=== PATIENT | female | born 1945 | race Caucasian/White ===

== ENCOUNTER 2020-01-22 12:39 | Outpatient (CLI) | payer MEDICARE, SELFPAY ==
--- NOTE | 2020-01-22 | XR_ITS ---
WS: [id number] Lumbar spine, 3 views, 01/22/2020 Clinical Data: BACK PAIN Comparison: None. Findings: No compression fractures or subluxation is seen. Degenerative disc narrowing is present at L2-L3, L3- L4 and L5-S1. There is a slight levoscoliosis of the upper lumbar spine. Osteoarthritic spurring of a ll the lumbar vertebral bodies is noted.. The transverse processes and SI joints are normal. There is calcification in the wall of the abdominal aorta but no aneurysm. XR/XR lumbar spine 2-3V* [id number] Impression: 1. Degenerative disc narrowing at multiple levels. 2. 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
== END 2020-01-22 12:40 | disposition home or self-care (01) ==
PROVIDERS: Family Provider Family Medicine; PCP Family Medicine; Visit Provider Family Medicine
DX: M54.9 Dorsalgia, unspecified (principal); M47.816 Spondylosis without myelopathy or radiculopathy, lumbar region
CPT/HCPCS: 72100

== ENCOUNTER 2020-03-08 13:20 | Outpatient (CLI) | payer MEDICARE, SELFPAY ==
--- NOTE | 2020-03-08 13:28 | MM_ITS ---
WS: [id number] SCREENING DIGITAL MAMMOGRAM WITH CAD HISTORY: SCREENING COMPARISON: 09/30/2013 Bilateral CC and MLO views submitted. Computer aided detection analyzed. Breast composition: There are scattered areas of fibroglandular density. Millimeters high density nodule in the RIGHT upper outer quadrant posteriorly. This may be small cyst or lymph node. This was not present on the prior study. Otherwise negative. MM/[place] [id number] IMPRESSION: BI-RADS: 0-Incomplete: Need additional imaging evaluation FOLLOW UP: Need Additional Imaging RIGHT breast: Spot compression views (CC and MLO). True ML. Ultrasound to follo w if abnormality persists.
--- NOTE | 2020-03-08 13:53 | XR_ITS ---
WS: [id number] SCREENING DEXA SCAN [employer] CLINICAL INFORMATION: HYPOTHYROIDISM, POST MENOPAUSAL COMPARISON: None. FINDINGS: The L1-L4 bone mineral density measures 1.178 g/cm2. This corresponds to a T score score of 0.0 and Z score of 1.1. Left femoral neck bone mineral density measures 0.858 g/cm2. This corresponds to a T score of -1.2 an d Z score of 0.1. Right femoral neck bone mineral density measures 0.852 g/cm2. This corresponds to a T score -1.2of an d Z score of 0.1. Mean femoral neck bone mineral density measures 0.855 g/cm2. This corresponds to a T score of -1.2 an d Z score of 0.1. XR/XR DEXA axial skeleton* [id number] IMPRESSION: Osteopenia in the femoral necks. Patient's FRAX calculated 10 year probability for major osteoporotic fracture i s 10.8 % and osteoporotic hip fracture is 2.0%.
== END 2020-03-08 13:21 | disposition home or self-care (01) ==
LOC: RADSHAW 13:22
PROVIDERS: PCP Family Medicine; Visit Provider Family Medicine
DX: Z12.31 Encounter for screening mammogram for malignant neoplasm of breast (principal); Z78.0 Asymptomatic menopausal state; E03.9 Hypothyroidism, unspecified
CPT/HCPCS: 77067; 77080

== ENCOUNTER 2020-04-06 08:26 | Outpatient (CLI) | payer MEDICARE, SELFPAY ==
--- NOTE | 2020-04-06 08:31 | US_ITS ---
WS: [id number] ADDITIONAL VIEWS RIGHT BREAST RIGHT breast ultrasound, limited HISTORY: ABNORMAL MAMMOGRAM RT BREAST COMPARISON: 03/08/2020, 09/30/2013 Compression views right CC and MLO projection. True ML also submitted. Two adjacent 3 to 4 mm masses project in the upper outer quadrant of the RIGHT breast at 10:00. Celia ns are slightly irregular. RIGHT breast ultrasound, limited. Ultrasound directed to the upper outer quadrant. At 10:00, 4 cm from the nipple are 2 adjacent hypoec hoic nodules. The largest measures 4 x 4 by 4 mm. The smaller nodule measures 3 x 2 x 3 mm. There is mild through transmission. The camacho are very slightly irregular thick. US/US breast RT limited* [id number] IMPRESSION: BI-RADS: 3-Probably Benign FOLLOW-UP: 6 Month Follow-up Recommend 6 month RIGHT breast ultrasound for further evaluation. These are pro bably minimally complex cyst at 10:00. As they are not simple cysts follow-up i s recommended.
== END 2020-04-06 08:27 | disposition home or self-care (01) ==
LOC: RADSHAW 08:28
PROVIDERS: PCP Family Medicine; Visit Provider Family Medicine
DX: R92.8 Other abnormal and inconclusive findings on diagnostic imaging of breast (principal); N63.11 Unspecified lump in the right breast, upper outer quadrant
CPT/HCPCS: 76642; 77065

== ENCOUNTER → 2021-10-10 09:07 | Outpatient (BNVA) | payer MEDICARE, SELFPAY | PROVIDERS: PCP Family Medicine; Visit Provider Family Medicine | DX: Z00.00 Encounter for general adult medical examination without abnormal findings (principal); I10 Essential (primary) hypertension; E03.9 Hypothyroidism, unspecified; E78.5 Hyperlipidemia, unspecified | CPT/HCPCS: 80053; 80061; 84443 ==

== ENCOUNTER 2021-11-27 12:33 | Outpatient (CLI) | payer MEDICARE, SELFPAY ==
--- NOTE | 2021-11-27 | MM_ITS ---
WS: [id number] VIEWS: MLO and CC views both breasts. 3D digital tomosynthesis is also included in this exam. Comparison made with prior exam of 09/30/2013, 03/08/2020,. Findings: Stable appearing subcentimeter nodule in the upper outer quadrant of the right breast. No architectur al distortion. No suspicious finding in the left breast. Scattered fibroglandular densities MM/[place] [id number] Impression: BI-RADS: 2-Benign FOLLOW-UP: 1 Year Follow-up This mammogram was also analyzed by the Computer Aided Detection System R2 Imag e Bending Roll Operator.
== END 2021-11-27 12:34 | disposition home or self-care (01) ==
LOC: RAD 12:34
PROVIDERS: PCP Family Medicine; Visit Provider Family Medicine
DX: Z12.31 Encounter for screening mammogram for malignant neoplasm of breast (principal)
CPT/HCPCS: 77063; 77067

== ENCOUNTER → 2022-10-10 09:58 | Outpatient (BNVA) | payer OTHER, SELFPAY | PROVIDERS: PCP Family Medicine; Visit Provider Family Medicine | DX: E03.9 Hypothyroidism, unspecified (principal); E78.5 Hyperlipidemia, unspecified | CPT/HCPCS: 80053; 80061; 84443 ==

== ENCOUNTER → 2023-05-09 09:44 | Outpatient (BNVA) | payer OTHER, SELFPAY | PROVIDERS: PCP Family Medicine; Visit Provider Family Medicine | DX: E78.5 Hyperlipidemia, unspecified (principal); E03.9 Hypothyroidism, unspecified; G47.00 Insomnia, unspecified; L57.0 Actinic keratosis; R00.2 Palpitations | CPT/HCPCS: 80053; 80061; 83036; 84443 ==

== ENCOUNTER → 2023-05-31 08:42 | Outpatient (BNVA) | payer OTHER, SELFPAY | PROVIDERS: PCP Family Medicine; Visit Provider Clinical Nurse Specialist Adult Health | DX: J06.9 Acute upper respiratory infection, unspecified (principal); J00 Acute nasopharyngitis [common cold]; U07.1 COVID-19 | CPT/HCPCS: 87400; 87426 ==

== ENCOUNTER 2023-09-24 08:05 | Outpatient (CLI) | payer MEDICARE, SELFPAY ==
--- NOTE | 2023-09-24 08:30 | MM_ITS ---
WS: [id number] BILATERAL 3D TOMOSYNTHESIS DIGITAL SCREENING MAMMOGRAPHY WITH CAD CLINICAL INFORMATION: screening HISTORY: Screening mammogram. No current complaints. COMPARISON: 2021 TECHNIQUE: Bilateral CC and MLO views. FINDINGS: Scattered fibroglandular densities bilaterally. No suspicious focal mass, asymmetry, calcifications, or architectural distortion. No evidence of malignancy. A few incidental punctate and lucent centered calcifications. IMPRESSION: MM/[place] [id number] BI-RADS: 2-Benign FOLLOW UP: 1 Year Follow-up Recommend return to annual screening mammography.
== END 2023-09-24 08:06 | disposition home or self-care (01) ==
LOC: RAD 08:06
PROVIDERS: PCP Family Medicine; Visit Provider Family Medicine
DX: Z12.31 Encounter for screening mammogram for malignant neoplasm of breast (principal)
CPT/HCPCS: 77063; 77067

== ENCOUNTER → 2023-12-23 09:40 | Outpatient (BNVA) | payer MEDICARE, SELFPAY | PROVIDERS: PCP Family Medicine; Visit Provider Specialist | DX: M17.12 Unilateral primary osteoarthritis, left knee (principal); Z01.818 Encounter for other preprocedural examination | CPT/HCPCS: 36415; 73560; 73565; 80053; 81003; 85025; 99204 ==

== ENCOUNTER 2023-12-31 08:07 | Outpatient (CLI) | payer MEDICARE, SELFPAY ==
--- NOTE | 2023-12-31 08:30 | CT_ITS ---
WS: [id number] CT LEFT knee, noncontrast HISTORY: per [facility] protocol TECHNIQUE: Protocol for [facility] total knee replacement has been obtained. This includes axial imaging th rough the LEFT hip, LEFT knee and LEFT ankle. DLP: 961.37 mGy.cm COMPARISON: Radiograph 12/23/2023 Pelvis: Mild osteopenia. No bone destruction. No soft tissue mass. LEFT knee: Tricompartment moderate to severe osteoarthritis. No significant joint effusion. No fractu res. LEFT ankle: Negative. CT/CT knee [facility] [id number] IMPRESSION: CT imaging provided for [facility] robotic total knee replacement.
== END 2023-12-31 08:08 | disposition home or self-care (01) ==
LOC: RAD 08:08
PROVIDERS: PCP Family Medicine; Visit Provider Specialist
DX: M17.12 Unilateral primary osteoarthritis, left knee (principal); Z01.818 Encounter for other preprocedural examination
CPT/HCPCS: 73700

== ENCOUNTER → 2024-01-07 09:05 | Outpatient (BNVA) | payer MEDICARE, SELFPAY | PROVIDERS: PCP Family Medicine; Visit Provider Family Medicine | DX: Z01.818 Encounter for other preprocedural examination (principal) | CPT/HCPCS: 93005 ==

== ENCOUNTER 2024-01-09 09:09 | Observation (INO) | payer MEDICARE, SELFPAY ==
[2024-01-09] VITALS (19 sets, daily range): BP systolic 104–144; BP diastolic 57–84; PULSE 70–77; RESP 16–20; TEMP 36.4–36.8; O2SAT 90–99; BMI 28.1
--- NOTE | 2024-01-09 07:09 | P.HPUD_ITS ---
Surgery/Procedure H&P Update DATE OF PROCEDURE: January 09, 2024 DATE H&P PERFORMED: 01/07/24 H&P UPDATE INFORMATION: I have reviewed H&P completed within last 30 days, I have examined patient prior to procedure, No changes to prior documentation and H&P is in [facility] [place] on date indicated PLANNED PROCEDURE: Operation Date: 01/09/24 08:20 Proposed Procedures p Javier Robot Total Knee Arthroplasty(Left) - Sonia Pereira MD Related Problem List Diagnoses (1) Osteoarthritis of left knee: Qualifiers: Osteoarthritis type: primary Qualified Code(s): M17.12 - Unilateral primary osteoarthritis, left knee
[2024-01-09] MEDS: sodium chloride 0.9% 1,000 ML 30 ML IV (07:20)
[2024-01-09] MEDS: acetaminophen 1,000 MG/100 ML PIGGYBACK 400 MG IV ×3 (07:21→23:25)
[2024-01-09] MEDS: gabapentin 300 mg Capsule PO (07:21)
[2024-01-09] MEDS: CELEcoxib 200 mg Capsule 400 MG PO (07:21)
--- NOTE | 2024-01-09 07:38 | ANES.PREANE2 ---
Pre-Anesthetic Assessment Height/Weight: Height 1.73 m Weight 83.915 kg Temp Pulse Resp BP Pulse Ox O2 Del Method 97.7 F 70 18 144/80 98 Room Air 01/09/24 06:57 01/09/24 06:57 01/09/24 06:57 01/09/24 06:57 01/09/24 06:57 01/09/24 06:57 Preop Diagnosis: Left Knee Arthritis Operation Date: 01/09/24 08:20 Proposed Procedures p Javier Robot Total Knee Arthroplasty(Left) - Sonia Pereira MD Familial anesthetic complications: none Was Beta Kem taken within 24 hours: N/A Was Clonidine taken within 24 hours: N/A Last intake: Intake Last Liquid Date 01/08/24 Last Liquid Time 21:00 Last Solid Date 01/08/24 Last Solid Time 19:30 Social No alcohol and No tobacco Exam alert, oriented x 3, clear to auscultation bilaterally and regular rate & rhythm Airway Submandibular: within normal limits Cervical ROM: within normal limits Mallampati: Class II Dentition: false History/ROS No significant history except as noted and No significant complaints Pulmonary None reported CV/HEM None reported None reported Hepatic None reported GI None reported Metabolic Thyroid Disease Musc/skel Lower Back Pain Neuropsych None reported Anesthetic Plan ASA status: 2 Anesthesia: Regional (specify below) Other: Spinal Risk of > 500 ml blood loss (7ml/kg in children): No Other Pertinent Information none Medications/Allergies Home Medications Medication Instructions Recorded Confirmed Last Taken Type loratadine 10 mg disintegrating 10 mg PO DAILY 12/23/23 01/07/24 01/08/24 History tablet atorvastatin 20 mg tablet (Lipitor) 20 mg PO DAILY 01/07/24 01/07/24 01/08/24 History diphenhydramine HCl 25 mg capsule 25 mg PO TID PRN Allergy Symptoms 01/07/24 01/07/24 Unknown History flaxseed oil 1,000 mg capsule 1,000 mg PO DAILY 01/07/24 01/07/24 01/06/24 History levothyroxine 25 mcg tablet 25 mcg PO DAILY 01/07/24 01/07/24 01/08/24 History multivitamin 1 tab PO DAILY 01/07/24 01/07/24 01/08/24 History Allergies Allergy/AdvReac Type Severity Reaction Status Date / Time tetracycline Allergy nausea Verified 01/07/24 16:36 Current Medications Generic Name Dose Route Start Last Admin Trade Name Freq PRN Reason Stop Dose Admin Sodium Chloride 1,000 mls @ 30 mls/hr 01/09/24 06:45 01/09/24 07:20 Sodium Chloride 0.9% IV 01/10/24 06:44 30 mls/hr .Q24H ALONA Administration PFSH Anesthesia Medical History Insomnia Hyperlipidemia Hypothyroid Social History Smoking and tobacco/nicotine status: never used tobacco/nicotine Data Anesthesia Cardiac Studies: No Data to Display
[2024-01-09] MEDS: ceFAZolin 2,000 mg SDV 2000 MG IVP ×3 (08:03→23:52)
[2024-01-09] MEDS: tranexamic acid 1,000 mg/10mL SDV 1000 MG IV (08:41)
--- NOTE | 2024-01-09 08:44 | ANES.PROC ---
Anesthesia Procedures Procedure/Date: 01/09/24 Nerve Block ^: Nerve Block 1: Main Anesthesia: spinal anesthesia block Time Out Performed: Yes Consent: requested by attending/covering physician, from patient, from other, risks and benefits reviewed and patient agrees to proceed Nerve block location: adductor canal (L) Anesthesia monitors applied: pulse oximetry, EKG, BP cuff and oxygen Nerve block position: supine Anesthetic Used: ropivicaine 0.5% (30 ml) and with decadron (4 mg) Ultrasound used to: recognize landmarks and visualize and ID femerol nerve Nerve Stimulator Used?: No Interscalene/Femoral BLK: 4 stimuplex 21 g needle used for position and inplane approach, visualize local anesthetic spread and no vascular puncture identified Injection: neg aspiration of heme Patient Tolerated Procedure: well Complications: none
[2024-01-09] MEDS: BUPivacaine liposome 13.3 mg/mL SDV 20 mL 266 MG INFILTRATI (09:03)
[2024-01-09] MEDS: vancomycin 1,000 MG SDV 1000 MG XX (09:03)
[2024-01-09] MEDS: BUPivacaine 0.5% INJ 30 mL 20 ML XX (09:03)
[2024-01-09] MEDS: ceFAZolin 1,000 mg SDV 2000 MG IRRIGATION (09:05)
--- NOTE | 2024-01-09 12:04 | XR_ITS ---
WS: [id number] Left knee, AP and lateral views, 01/09/2024 Clinical Data: Status post left total knee arthroplasty Comparison: AP both knees, left knee, 12/23/2023 Findings: There is an arthroplasty in position. There is postoperative air in the joint space. The arthroplasty components show good position. XR/XR knee LT 1-2V [id number] Impression: Left knee arthroplasty.
--- NOTE | 2024-01-09 12:10 | ANE.PACU2 ---
Inpatient post-anesthesia follow up: Airway intact: Yes Vital signs: Temperature 98.2 F Pulse Rate 74 Respiratory Rate 17 Blood Pressure [Or thostatic 89/57 Standing Left Arm] Blood Pressure [Or thostatic 89/69 Sitting Left Arm] Blood Pressure [Or thostatic 105/64 Lying Left Arm] Blood Pressure 144/81 Pulse Oximetry 97 Oxygen Delivery Me thod Room Air Oxygen Flow Rate 6 Fraction of Inspir ed Oxygen Hydration adequate: Yes Nausea and vomiting: No Pain level: 1 Mental status: Baseline
--- NOTE | 2024-01-09 12:30 | PM.OP ---
Operative Report Date of procedure: January 09, 2024 Pre-op diagnosis: Severe degenerative osteoarthritis of the left knee Post-op diagnosis: Severe degenerative osteoarthritis of the left knee Post-op findings: Severe degenerative osteoarthritis left knee with flexion contracture and varus deformity Procedure done: Left total knee arthroplasty with Javier guidance Implants: The Dawson total knee system with a size 4 triathlon beaded cruciate retaining femur left, a triathlon titanium tibial component size 5 beaded, a triathlon X3 tibial bearing CS insert size 5 X 9 mm and a beaded triathlon titanium asymmetric patella size 35 x 10 mm Specimens removed/disposition: Bone, disposed of Pathology: None Surgeon: Sonia Pereira MD Spark Tester: Polina Christopher, nurse practitioner, who services were required for exposure, retraction, and closure. Anesthesia: Spinal (With MAC, ASA 2) Estimated blood loss (mL): 260 Tourniquet time (min): 66 (At 250 mmHg) IV fluids (mL): 1,750 Urine output (mL): 1,200 Complications: None Findings: Severe degenerative osteoarthritis with large osteophytes with flexion and varus deformities Condition: stable Disposition: PACU (Then to floor for postoperative rehabilitation and pain management) Brief History: This 78-year-old presented for heart same-day left total knee arthroplasty with Javier guidance. The patient had several years of pain, but she was reluctant to proceed with knee arthroplasty. She has had significant conservative measures such as cortisone injection, anti-inflammatories, and none of these were of benefit. She also had significant limitations in her activities of daily living. After discussion, the patient wished to proceed with total knee arthroplasty. Risks and complications were discussed with her and consents were signed. Questions were answered at that time. Procedure: The patient was brought to the operating theater, and after undergoing spinal anesthetic, with MAC and with supplemental adductor canal block, ASA 3, the left lower extremity was prepped with Dura-Prep and draped in usual fashion following placement of a tourniquet high on the leg. The leg was then draped free.? Tourniquet was elevated partially through the case secondary to bleeding bone. The tourniquet was then elevated to 250 mmHg with a total tourniquet time of 66 minutes.? A surgical pause was performed, and at the time of the surgical pause, we confirmed the site and side of surgery. Additionally, we confirmed the appropriate and timely administration of preoperative antibiotics, Ancef 2 g.? The availability of equipment was confirmed, and the patient's identity was verbalized as well. Following the surgical pause, an incision was made centering over the patella continuing proximally and distally as necessary to allow access to the knee joint. Dissection continued through skin and soft tissues using a scalpel. Hemostasis was obtained using electrocautery. The skin incision was followed by a median parapatellar arthrotomy. The leg was extended and the patella was able to be displaced laterally.? Appropriate arrays and markers were placed in appropriate position for use of the Javier.? Preoperative planning had been accomplished and was discussed in detail with the [facility] visitor services representative.? Intraoperative mapping of the femur and tibia was accomplished after the arrays were placed.? Internal markers were also placed.? Once we had accomplished the Javier mapping, we began the appropriate resections for placement of the prosthesis.? The plan was for a cruciate retaining right total knee arthroplasty. Once appropriate mapping had been accomplished retraction was established using manual retraction by surgical technicians and also the Javier leg positioner and retractors.? The knee was evaluated.? There was significant osteoarthritic change as well as very minimal flexion contracture as well as varus deformity.? Appropriate bone resection was accomplished using the Javier.? The femur was sized to a size 4.? Following femoral cuts, attention was directed to the tibia.? Osteophytes were removed prior to this portion of the procedure.? We had performed a medial release at the beginning of the procedure to allow for placement of the array.? Proximal tibia was evaluated, and it was felt that appropriate size for the tibia was a size 5.? Tray was noted to fit nicely with good coverage.? Rim fit was accomplished with the size 5. A trial reduction was accomplished after osteophytes have been removed as well as the medial and lateral menisci.? We had removed the anterior cruciate ligament at the beginning of the case and preserved the posterior cruciate ligament.? Trial reduction was accomplished with a size 4 femoral cruciate retaining component, a size 5 tibial tray and a size 5 CS tibial bearing insert which was 9 mm.? Secondary to the balancing of the knee, we elected to place a 9 mm insert for the actual component. Alignment was felt to be appropriate as well.? Trial components were removed after the femur had been drilled.? Prior to removal of the tibial tray which had been pinned in position with appropriate rotation as determined by the Javier plan, we broached the tibia.? Subsequently, the 4 drill holes were made for the prosthetic component.? All trial components were removed, and the wound was irrigated.? Plans were made for insertion of the prosthetic components.? Prior to this, the patella was manually prepared.? After resection of the articular surface with the jogging system, it was measured and measured a 35 mm patella.? We resected approximately 11 mm of patella.? Patellar height was restored with the patellar component. Once again, the wound was irrigated.? The Tritanium tibia was impacted into position.? The beaded femur was then impacted into position in a cementless fashion. The CS tibial insert was placed prior to placement of the femoral component. The patella was pressed into position with a patellar clamp.? Exparel was injected about the components deep and superficially.? The knee was then copiously irrigated with betadine and saline and suctioned dry. Attention was then directed to closure. Closure was accomplished with 0 Vicryl in the fascial tissues.? The suture line of 0 Vicryl was supplemented with strata fix, #1, with a running stitch from proximal to distal and a second running stitch from distal to proximal.? This was followed by Surgiflo and vancomycin powder.? Following this, a 2-0 Monocryl was used in the subcutaneous tissues, and the skin was closed with 3-0 Strata fix.? Care was taken to assure an excellent subcutaneous as well as skin closure.? A sterile dressing was then placed consisting of Dermabond Prineo, OpSite, ABD, sterile soft roll, and an Zain wrap including over the foot. The patient was returned the Recovery Room in a satisfactory condition. X-rays were obtained and reviewed there.? The patient will be discharged to the floor for postoperative rehabilitation and pain management. Related Problem List Diagnoses (1) Osteoarthritis of left knee:
[2024-01-09] MEDS: tranexamic acid 1,000 MG/100 ML PREMIX 600 MG IV (16:07)
[2024-01-09] MEDS: oxyCODONE 5 mg IR Tab/Cap PO ×2 (17:26→21:43)
[2024-01-09] MEDS: sennosides-docusate Tablet 2 TAB PO (17:26)
[2024-01-09] MEDS: chlorhexidine gluconate 0.12% Btl 473 mL 30 ML MUCOUS MEM ×2 (17:26→21:43)
[2024-01-09] MEDS: iron polysaccharide complex 150 mg Capsule PO (17:26)
[2024-01-09] MEDS: calcium carbonate 500 mg Chew Tablet 1000 MG PO (17:26)
[2024-01-09] MEDS: CELEcoxib 200 mg Capsule PO (21:43)
[2024-01-10] VITALS (9 sets, daily range): BP systolic 89–144; BP diastolic 57–81; PULSE 67–74; RESP 16–20; TEMP 36.4–36.8; O2SAT 95–97
[2024-01-10] MEDS: oxyCODONE 5 mg IR Tab/Cap PO ×3 (02:17→12:45)
[2024-01-10 03:44] LABS: Basophils % 0.1 %; Hematocrit 39.6 % (36-47); Lymphocytes # 1.7 10^3/uL (0.8-4.8); Lymphocytes % 10.3 %; Mean Corpuscular HGB Conc 32.6 g/dL (30-55); Mean Corpuscular Hemoglobin 29.9 pg (27-33); Mean Corpuscular Volume 91.7 fl (85-98); Mean Platelet Volume 11.5 fL (7.4-10.4); Monocytes # 0.9 10^3/uL (0.2-0.9); Monocytes % 5.1 %; Neutrophils # 14.03 10^3/uL (1.8-7.7); Nucleated Red Blood Cells % 0 %; Platelet Count 228 10^3/cmm (157-399); Red Blood Count 4.32 10^6/uL (3.85-5.65); Red Cell Distribution Width 12.4 % (12.1-15.1); White Blood Count 16.73 10^3/uL (3.29-11.43)
[2024-01-10 04:09] LABS: Anion Gap 17.1 (5-19); Blood Urea Nitrogen 21 mg/dL (8-23); Calcium 8.8 mg/dL (8.5-10.5); Carbon Dioxide 20 mmol/L (22-29); Chloride 104 mmol/L (98-107); Creatinine Clr Calc Pharmacy 64.7279; Glucose 141 mg/dL (65-115); Osmolality Calculated 289 mOsm/kg (285-295); Potassium 4.1 mmol/L (3.5-5.1); Sodium 137 mmol/L (136-145)
[2024-01-10] MEDS: acetaminophen 1,000 MG/100 ML PIGGYBACK 400 MG IV (06:54)
[2024-01-10] MEDS: ceFAZolin 2,000 mg SDV 2000 MG IVP (08:15)
[2024-01-10] MEDS: calcium carbonate 500 mg Chew Tablet 1000 MG PO (08:15)
[2024-01-10] MEDS: multivitamin therapeutic Tablet 1 TAB PO (08:16)
[2024-01-10] MEDS: atorvastatin 40 mg Tablet 20 MG PO (08:16)
[2024-01-10] MEDS: iron polysaccharide complex 150 mg Capsule PO (08:16)
[2024-01-10] MEDS: levothyroxine 25 mcg Tablet PO (08:16)
[2024-01-10] MEDS: cholecalciferol (vitamin D3) 1,000 unit Tablet 1000 UNIT PO (08:16)
[2024-01-10] MEDS: CELEcoxib 200 mg Capsule PO (08:16)
[2024-01-10] MEDS: aspirin 325 mg EC Tablet PO (08:16)
[2024-01-10] MEDS: loratadine 10 mg Tablet PO (08:16)
[2024-01-10] MEDS: chlorhexidine gluconate 0.12% Btl 473 mL 30 ML MUCOUS MEM (08:17)
[2024-01-10] MEDS: sennosides-docusate Tablet 2 TAB PO (08:29)
[2024-01-10] MEDS: mupirocin oint 22 gm 1 APPLIC NASAL (08:30)
--- NOTE | 2024-01-10 10:26 | PC.CHAP ---
Pastoral Care Encounter/Spiritual Assessment Type of Contact [] Declined band booker visit [] Patient/Family/Request visit [] Outpatient visit [] Follow-up visit [] Physician referral [] Code/Alert [x] Routine visit [] Staff referral [] Actively dying [] Patient sleeping [] Family support [] [] Out of room [] Palliative care [] [] Receiving care in room [] Pre-surgical visit [] Trauma [] Long length of stay [] ICU visit [] Other: Relational/Emotional Strength [x] Patient feels connected with others/family/visitors/staff [] Distress [] Loneliness/isolation [] Abandonment Spirituality of Patient [x] Person of Serina [] Attends Cheondoism of their Serina [x] Believes in Prayer [] Reads Bible or Rastafarian materials [] There are Spiritual issues to be addressed Delivery Architect Interventions [x] Prayer [x] Active listening [x] Non-anxious presence [] Spiritual/emotional support [] Crisis/trauma care [] Spiritual counseling [] Bereavement support [] Provided bereavement packet [] Provided Bible/devotional materials [] Provided toy/stuffed animal, coloring book to patient or family member [] Provided Communion [] Anointing/[place] [] Salvation [] Completed spiritual assessment [] Other: Impact on Illness or Injury [] Angry [] Fearful [] Anxious [] Often cries [] Exhaustion [] Unable to work [] Unable to attend anabaptism [] Unable to walk/stand [] Unable to read [] Unable to drive [] Unable to eat/drink [] Unable to sleep [] Unable to be with family [] Patient intubated [] Other: Summary Prayer Time spent with patient 5 min
[2024-01-10] MEDS: acetaminophen 500 mg Tablet 1000 MG PO (15:25)
--- NOTE | 2024-01-10 15:30 | PM.DCS ---
Discharge Providers Date of Admission: 01/09/24 09:09 Date of Discharge: January 10, 2024 Attending Provider at Admission: Sonia Pereira MD Attending Provider at Discharge: Sonia Pereira MD Primary Care Provider: Fred Carter MD Diagnoses at Discharge Discharge Diagnosis (1) Osteoarthritis of left knee: Status: Acute Qualifiers: Osteoarthritis type: primary Qualified Code(s): M17.12 - Unilateral primary osteoarthritis, left knee Reason for Visit Reason for Visit: M17.12 Physical Exam Urinary Catheter Management: Weaver: Cath Placed During This Visit: no Reason for Continuing Indwelling Catheter: Perioperative Use in Selected Surgeries Discharge Data Studies Completed and Pending Completed Studies During Hospitalization Category Date Time Status XR knee LT 1-2V 25846 Routine Exams 01/09/24 12:04 Completed Radiology Impressions Knee X-Ray 01/09/24 12:04 Impression: Left knee arthroplasty. Laboratory Results WBC 16.73 10^3/uL (3.29-11.43) H 01/10/24 02:57 RBC 4.32 10^6/uL (3.85-5.65) 01/10/24 02:57 Hgb 12.90 g/dL (11.27-16.99) 01/10/24 02:57 Hct 39.6 % (36-47) 01/10/24 02:57 MCV 91.7 fl (85-98) 01/10/24 02:57 MCH 29.9 pg (27-33) 01/10/24 02:57 MCHC 32.6 g/dL (30-55) 01/10/24 02:57 RDW 12.4 % (12.1-15.1) 01/10/24 02:57 Plt Count 228 10^3/cmm (157-399) 01/10/24 02:57 MPV 11.5 fL (7.4-10.4) H 01/10/24 02:57 Neut % (Auto) 84.0 % 01/10/24 02:57 Lymph % (Auto) 10.3 % 01/10/24 02:57 Whitfield % (Auto) 5.1 % 01/10/24 02:57 Eos % (Auto) 0.0 % 01/10/24 02:57 Baso % (Auto) 0.1 % 01/10/24 02:57 Neut # (Auto) 14.03 10^3/uL (1.8-7.7) H 01/10/24 02:57 Lymph # (Auto) 1.7 10^3/uL (0.8-4.8) 01/10/24 02:57 Whitfield # (Auto) 0.9 10^3/uL (0.2-0.9) 01/10/24 02:57 Eos # (Auto) 0.0 10^3/uL (0.0-0.8) 01/10/24 02:57 Baso # (Auto) 0.0 10^3/uL (0.0-0.1) 01/10/24 02:57 Nucleated RBC % (auto) 0 % 01/10/24 02:57 Nucleated RBCs # 0.0 /100WBC 01/10/24 02:57 Sodium 137 mmol/L (136-145) 01/10/24 02:57 Potassium 4.1 mmol/L (3.5-5.1) 01/10/24 02:57 Chloride 104 mmol/L (98-107) 01/10/24 02:57 Carbon Dioxide 20 mmol/L (22-29) L 01/10/24 02:57 Anion Gap 17.1 (5-19) 01/10/24 02:57 BUN 21 mg/dL (8-23) 01/10/24 02:57 Creatinine 0.8 mg/dL (0.5-0.9) 01/10/24 02:57 GFR Calculation Not Reportable 01/10/24 02:57 Glucose 141 mg/dL (65-115) H 01/10/24 02:57 Calculated Osmolality 289 mOsm/kg (285-295) 01/10/24 02:57 Calcium 8.8 mg/dL (8.5-10.5) 01/10/24 02:57 Vitals Last Vital Signs Temp 97.6 F 01/10/24 11:25 Pulse 70 01/10/24 11:25 Resp 18 01/10/24 15:42 BP 108/71 01/10/24 11:25 Pulse Ox 96 01/10/24 11:25 O2 Del Method Room Air 01/10/24 11:25 O2 Flow Rate 6 01/09/24 11:49 Discharge Plan Discharge Patient Disposition: Home Health Service Condition: Stable Prescriptions: New celecoxib 200 mg Capsule 200 mg PO Q12H 30 Days Qty: 30 0RF acetaminophen 500 mg Tablet 1,000 mg PO Q8H 15 Days Qty: 90 0RF aspirin 325 mg Tablet,Delayed Release (Dr/Ec) 325 mg PO DAILY 30 Days Qty: 0 0RF oxycodone 5 mg Tablet 5 - 10 mg PO Q4H PRN (Reason: Moderate To Severe Pain) Qty: 42 0RF Continued loratadine 10 mg tablet,disintegrating 10 mg PO DAILY multivitamin Tablet 1 tab PO DAILY flaxseed oil 1,000 mg capsule 1,000 mg PO DAILY Rx Instructions: administer with a meal diphenhydramine HCl 25 mg capsule 25 mg PO TID PRN (Reason: Allergy Symptoms) atorvastatin [Lipitor] 20 mg tablet 20 mg PO DAILY levothyroxine 25 mcg tablet 25 mcg PO DAILY Rx Instructions: Take 1 tablet by mouth once daily Discharge Orders: Discharge Order (Routine); Ordered 01/10/24 Ordered By: Sonia Pereira Referrals: [facility] [Outside] Sonia Pereira MD [Physician] - 01/22/24 11:15 am Discharge Diet: Advance as tolerated and Usual diet Discharge Activity: Increase activity as tolerated, Limit activity as instructed, Use walker/crutches as instructed and As per PT/OT instructions Patient Instructions: Acute Wound Care (DC), Total Knee Replacement (GEN), Joint Replacement Stoplight, Opioid Safety, Post Anesthesia Care Activity Restrictions/Additional Instructions: Ice and elevation to left lower extremity. You may weight-bear as tolerated. Coding Level of Care Code Acute Code for [facility] Diagnoses Primary osteoarthritis of left knee M17.12 Osteoarthritis type: primary
--- NOTE | 2024-01-10 15:30 | PM.DCS ---
Discharge Providers Date of Admission: 01/09/24 09:09 Date of Discharge: January 10, 2024 Attending Provider at Admission: Sonia Pereira MD Attending Provider at Discharge: Sonia Pereira MD Primary Care Provider: Fred Carter MD Diagnoses at Discharge Discharge Diagnosis (1) Osteoarthritis of left knee: Status: Acute Qualifiers: Osteoarthritis type: primary Qualified Code(s): M17.12 - Unilateral primary osteoarthritis, left knee (2) Status post total left knee replacement not using cement: Status: Acute Permanent problem details: Date of procedure: January 09, 2024 Diagnosis: Severe degenerative osteoarthritis of the left knee Procedure done: Left total knee arthroplasty with Javier guidance Implants: The [employer] total knee system with a size 4 triathlon beaded cruciate retaining femur left, a triathlon titanium tibial component size 5 beaded, a triathlon X3 tibial bearing CS insert size 5 X 9 mm and a beaded triathlon titanium asymmetric patella size 35 x 10 mm Reason for Visit Reason for Visit: M17.12 Brief History: This 78-year-old presented for heart same-day left total knee arthroplasty with Javier guidance. The patient had several years of pain, but she was reluctant to proceed with knee arthroplasty. She has had significant conservative measures such as cortisone injection, anti-inflammatories, and none of these were of benefit. She also had significant limitations in her activities of daily living. After discussion, the patient wished to proceed with total knee arthroplasty. Risks and complications were discussed with her and consents were signed. Questions were answered at that time. Hospital Course Hospital Course Patient was admitted under observation status following same-day surgery for left total knee arthroplasty. She tolerated this well. Postoperatively, she was a little delayed in her ability to participate with physical therapy secondary to low blood pressure. She states that she tends to run low and has had some episodes like this at home. By the afternoon, she was able to participate with therapy. She was felt safe to be discharged home, and she was in agreement. The patient was seen in her room. Her dressing was discontinued except for the OpSite. The calf is soft and nontender she was neurologically intact. There was minimal to no drainage. There was minimal bruising. She was discharged home to follow-up as scheduled. Physical Exam Const: COMMON NORMALS: no acute distress, average body habitus, patient oriented x3 and alert GENERAL APPEARANCE: cooperative and comfortable ORIENTATION/CONSCIOUSNESS: Yes awake HENMT: COMMON NORMALS: normocephalic and atraumatic HEAD & SCALP: normocephalic and atraumatic Eye: GENERAL EYE: appearance normal, both eyes and all related structures Chest: COMMONS NORMALS: normal inspection of the chest Resp: COMMON NORMALS: normal respiratory effort EFFORT & INSPECTION: Yes able to speak in complete sentences and Yes symmetric chest movement Extremity: LEFT LOWER EXTREMITY: Yes knee joint (Dressing removed with minimal drainage. OpSite in place) Left knee: Yes palpation (No significant discomfort), Yes ROM (Able to straight leg raise) and Yes neurovascular exam (Intact distally) Neuro: COMMON NORMALS: patient oriented x3 SENSORIUM/ORIENTATION: Yes alert Psych: COMMON NORMALS: mental status grossly normal APPEARANCE: Yes grossly normal ATTITUDE: Yes calm and Yes engaged ATTENTION/CONCENTRATION: Yes attention grossly intact Skin: COMMON NORMALS: no rashes or lesions noted GENERAL SKIN EXAM: no rashes or lesions noted Urinary Catheter Management: Weaver: Cath Placed During This Visit: no Reason for Continuing Indwelling Catheter: Perioperative Use in Selected Surgeries Discharge Data Studies Completed and Pending Completed Studies During Hospitalization Category Date Time Status XR knee LT 1-2V 19393 Routine Exams 01/09/24 12:04 Completed Radiology Impressions Knee X-Ray 01/09/24 12:04 Impression: Left knee arthroplasty. Laboratory Results WBC 16.73 10^3/uL (3.29-11.43) H 01/10/24 02:57 RBC 4.32 10^6/uL (3.85-5.65) 01/10/24 02:57 Hgb 12.90 g/dL (11.27-16.99) 01/10/24 02:57 Hct 39.6 % (36-47) 01/10/24 02:57 MCV 91.7 fl (85-98) 01/10/24 02:57 MCH 29.9 pg (27-33) 01/10/24 02:57 MCHC 32.6 g/dL (30-55) 01/10/24 02:57 RDW 12.4 % (12.1-15.1) 01/10/24 02:57 Plt Count 228 10^3/cmm (157-399) 01/10/24 02:57 MPV 11.5 fL (7.4-10.4) H 01/10/24 02:57 Neut % (Auto) 84.0 % 01/10/24 02:57 Lymph % (Auto) 10.3 % 01/10/24 02:57 [place] % (Auto) 5.1 % 01/10/24 02:57 Eos % (Auto) 0.0 % 01/10/24 02:57 Baso % (Auto) 0.1 % 01/10/24 02:57 Neut # (Auto) 14.03 10^3/uL (1.8-7.7) H 01/10/24 02:57 Lymph # (Auto) 1.7 10^3/uL (0.8-4.8) 01/10/24 02:57 [place] # (Auto) 0.9 10^3/uL (0.2-0.9) 01/10/24 02:57 Eos # (Auto) 0.0 10^3/uL (0.0-0.8) 01/10/24 02:57 Baso # (Auto) 0.0 10^3/uL (0.0-0.1) 01/10/24 02:57 Nucleated RBC % (auto) 0 % 01/10/24 02:57 Nucleated RBCs # 0.0 /100WBC 01/10/24 02:57 Sodium 137 mmol/L (136-145) 01/10/24 02:57 Potassium 4.1 mmol/L (3.5-5.1) 01/10/24 02:57 Chloride 104 mmol/L (98-107) 01/10/24 02:57 Carbon Dioxide 20 mmol/L (22-29) L 01/10/24 02:57 Anion Gap 17.1 (5-19) 01/10/24 02:57 BUN 21 mg/dL (8-23) 01/10/24 02:57 Creatinine 0.8 mg/dL (0.5-0.9) 01/10/24 02:57 GFR Calculation Not Reportable 01/10/24 02:57 Glucose 141 mg/dL (65-115) H 01/10/24 02:57 Calculated Osmolality 289 mOsm/kg (285-295) 01/10/24 02:57 Calcium 8.8 mg/dL (8.5-10.5) 01/10/24 02:57 Vitals Last Vital Signs Temp 97.6 F 01/10/24 11:25 Pulse 70 01/10/24 11:25 Resp 18 01/10/24 15:42 BP 108/71 01/10/24 11:25 Pulse Ox 96 01/10/24 11:25 O2 Del Method Room Air 01/10/24 11:25 O2 Flow Rate 6 01/09/24 11:49 Discharge Plan Discharge Patient Disposition: Home Health Service Condition: Stable Prescriptions: New celecoxib 200 mg Capsule 200 mg PO Q12H 30 Days Qty: 30 0RF acetaminophen 500 mg Tablet 1,000 mg PO Q8H 15 Days Qty: 90 0RF aspirin 325 mg Tablet,Delayed Release (Dr/Ec) 325 mg PO DAILY 30 Days Qty: 0 0RF oxycodone 5 mg Tablet 5 - 10 mg PO Q4H PRN (Reason: Moderate To Severe Pain) Qty: 42 0RF Continued loratadine 10 mg tablet,disintegrating 10 mg PO DAILY multivitamin Tablet 1 tab PO DAILY flaxseed oil 1,000 mg capsule 1,000 mg PO DAILY Rx Instructions: administer with a meal diphenhydramine HCl 25 mg capsule 25 mg PO TID PRN (Reason: Allergy Symptoms) atorvastatin [Lipitor] 20 mg tablet 20 mg PO DAILY levothyroxine 25 mcg tablet 25 mcg PO DAILY Rx Instructions: Take 1 tablet by mouth once daily Discharge Orders: Discharge Order (Routine); Ordered 01/10/24 Ordered By: Sonia Pereira Referrals: [facility] [Outside] Sonia Pereira MD [Physician] - 01/22/24 11:15 am Discharge Diet: Advance as tolerated and Usual diet Discharge Activity: Increase activity as tolerated, Limit activity as instructed, Use walker/crutches as instructed and As per PT/OT instructions Patient Instructions: Acute Wound Care (DC), Total Knee Replacement (GEN), Joint Replacement Stoplight, Opioid Safety, Post Anesthesia Care Activity Restrictions/Additional Instructions: Ice and elevation to left lower extremity. You may weight-bear as tolerated. Discharge Attestations Time Spent in Discharge Care*: greater than 30 min Specific Discharge Activities: educating patient, documenting/other paperwork and evaluating patient/reviewing data Quality Metrics Clinical Quality Measures [ No reported AMI, CVA or VTE this stay] Coding Level of Care Code Acute Code for Chg Fwd Diagnoses Primary osteoarthritis of left knee M17.12 Osteoarthritis type: primary Status post total left knee replacement not using cement Z96.652
== END 2024-01-10 16:40 | disposition home health service (06) ==
LOC: MEDSURG 09:10
PROVIDERS: Admitting Provider Specialist; PCP Family Medicine; Visit Provider Specialist
PROC: 8E0Y0CZ Robotic Assisted Procedure of Lower Extremity, Open Approach (ICD-10-PCS; CPT 27447; principal; 2024-01-09 08:10)
DX: M17.12 Unilateral primary osteoarthritis, left knee (principal); M21.162 Varus deformity, not elsewhere classified, left knee; M24.562 Contracture, left knee; E78.5 Hyperlipidemia, unspecified; E03.9 Hypothyroidism, unspecified
CPT/HCPCS: 20985; 27447; 36415; 73560; 80048; 85025; 97110; 97116; 97161; 97165; 97530; C1776; C9290; G0378; J0131; J0690; J1100; J1200; J2250; J2371; J2405; J2704; J2795; J3370; J3490; J7030

== ENCOUNTER → 2024-01-22 11:10 | Outpatient (BNVA) | payer MEDICARE, SELFPAY | PROVIDERS: PCP Family Medicine; Visit Provider Nurse Practitioner | DX: Z96.652 Presence of left artificial knee joint (principal) | CPT/HCPCS: 73560; 73565; 99024 ==

== ENCOUNTER 2024-02-06 10:14 | Outpatient (RCR) | payer MEDICARE, SELFPAY | END 2024-02-08 18:00 | disposition home or self-care (01) | LOC: SPT 10:14 | PROVIDERS: PCP Family Medicine; Visit Provider Nurse Practitioner | DX: Z47.1 Aftercare following joint replacement surgery (principal); Z96.652 Presence of left artificial knee joint | CPT/HCPCS: 97161 ==

== ENCOUNTER 2024-02-09 06:00 | Outpatient (RCR) | payer MEDICARE, SELFPAY | END 2024-03-09 23:59 | disposition home or self-care (01) | LOC: SPT 06:00 | PROVIDERS: PCP Family Medicine; Visit Provider Nurse Practitioner | DX: Z47.1 Aftercare following joint replacement surgery (principal); Z96.652 Presence of left artificial knee joint | CPT/HCPCS: 97110; 97530 ==

== ENCOUNTER → 2024-02-12 11:01 | Outpatient (BNVA) | payer MEDICARE, SELFPAY | PROVIDERS: PCP Family Medicine; Visit Provider Nurse Practitioner | DX: Z96.652 Presence of left artificial knee joint (principal); M17.12 Unilateral primary osteoarthritis, left knee | CPT/HCPCS: 73560; 73565; 99024 ==

== ENCOUNTER 2024-03-10 06:00 | Outpatient (RCR) | payer MEDICARE, SELFPAY | END 2024-04-09 23:59 | disposition home or self-care (01) | LOC: SPT 06:00 | PROVIDERS: PCP Family Medicine; Visit Provider Nurse Practitioner | DX: Z47.1 Aftercare following joint replacement surgery (principal); Z96.652 Presence of left artificial knee joint | CPT/HCPCS: 97110 ==

== ENCOUNTER → 2024-03-13 10:20 | Outpatient (BNVA) | payer MEDICARE, SELFPAY | PROVIDERS: PCP Family Medicine; Visit Provider Nurse Practitioner | DX: Z96.652 Presence of left artificial knee joint (principal); R60.0 Localized edema | CPT/HCPCS: 73560; 73565 ==

== ENCOUNTER 2024-03-13 12:30 | Outpatient (CLI) | payer MEDICARE, SELFPAY ==
--- NOTE | 2024-03-13 12:30 | USCV_ITS ---
Jessica Echevarria Age: 79 Gender: F : 1945 Exam Date: 03/13/2024 12:44 Ordering Phys: Polina Chirstopher Technologist: USR Exam Location[place] [facility] [place]: pain HISTORY: Lower extremity swelling. Lower extremity pain. PROCEDURES: Venous duplex imaging was performed in only the left lower extremity. The following venous structures were evaluated: common femoral vein, profunda vein, proximal portion of the greater saphenous vein, superficial femoral vein, and the popliteal vein. In addition, the posterior tibial and peroneal trunk were evaluated. FINDINGS: Normal 2-D Doppler and augmentation and compressibility throughout the lower extremity venous structures. Additional imaging through the proximal calf veins also reveals no thrombus. Limited evaluation of the greater saphenous vein is patent with no thrombus. CONCLUSIONS No DVT left lower extremity. Dr. Debra Haynes DO (Electronically Signed) Final Date: 13 March 2024 14:15 S
== END 2024-03-13 12:38 | disposition home or self-care (01) ==
PROVIDERS: PCP Family Medicine; Visit Provider Nurse Practitioner
DX: M79.662 Pain in left lower leg (principal); Z96.652 Presence of left artificial knee joint; M79.89 Other specified soft tissue disorders
CPT/HCPCS: 93971; 99213

== ENCOUNTER → 2024-03-18 08:16 | Outpatient (BNVA) | payer MEDICARE, SELFPAY | PROVIDERS: PCP Family Medicine; Visit Provider Family Medicine | DX: E11.9 Type 2 diabetes mellitus without complications (principal); R60.9 Edema, unspecified | CPT/HCPCS: 80053; 83880; 84443; 85025 ==

== ENCOUNTER → 2024-04-08 11:25 | Outpatient (BNVA) | payer MEDICARE, SELFPAY | PROVIDERS: PCP Family Medicine; Visit Provider Nurse Practitioner | DX: M17.11 Unilateral primary osteoarthritis, right knee (principal); Z96.652 Presence of left artificial knee joint | CPT/HCPCS: 20610; 73560; 73565; 99214; J1100; J2795; J3301 ==

== ENCOUNTER 2024-04-10 06:00 | Outpatient (RCR) | payer MEDICARE, SELFPAY | END 2024-04-14 23:59 | disposition home or self-care (01) | LOC: SPT 06:00 | PROVIDERS: PCP Family Medicine; Visit Provider Nurse Practitioner | DX: Z47.1 Aftercare following joint replacement surgery (principal); Z96.652 Presence of left artificial knee joint | CPT/HCPCS: 97110 ==

== ENCOUNTER → 2024-08-24 08:33 | Outpatient (BNVA) | payer MEDICARE, SELFPAY | PROVIDERS: PCP Family Medicine; Visit Provider Nurse Practitioner | DX: M17.11 Unilateral primary osteoarthritis, right knee (principal) | CPT/HCPCS: 20610; J1100; J2795; J3301; J9999 ==

== ENCOUNTER → 2024-09-30 09:29 | Outpatient (BNVA) | payer MEDICARE, SELFPAY | PROVIDERS: PCP Family Medicine; Visit Provider Family Medicine | DX: E78.5 Hyperlipidemia, unspecified (principal); E03.9 Hypothyroidism, unspecified; Z00.00 Encounter for general adult medical examination without abnormal findings; R53.83 Other fatigue; Z13.820 Encounter for screening for osteoporosis; E55.9 Vitamin D deficiency, unspecified | CPT/HCPCS: 80053; 80061; 82306; 82607; 84443; 85025 ==

== ENCOUNTER 2024-10-19 12:57 | Outpatient (CLI) | payer MEDICARE, SELFPAY ==
--- NOTE | 2024-10-19 13:30 | XR_ITS ---
WS: [id number] DEXA (DUAL ENERGY X-RAY ABSORPTIOMETRY) Bone mineral density was performed using a Ingenic machine. HISTORY: screening COMPARISON: 03/08/2020 Lumbar spine BMD (L1-L4): 1.178 g/cm2 T score: 0.0 Z score: 1.2 Total hip BMD: Left: 0.800 g/cm2. T score: -1.6 Z score: 0.0 Right: 0.833 g/cm2. T score: -1.4 Z score: 0.2 10 year probability of a major osteoporotic fracture is 14.4%. Compared to the prior study from 03/08/2020. Lumbar spine bone mineral density has not changed. Bilateral hips bone mineral density has decreased by 4.4%. XR/XR DEXA axial skeleton* [id number] IMPRESSION: OSTEOPENIA based upon the WHO classification for females. Significant decrease in bone mineral density within the hips since the prior st udy. No significant change in bone mineral density within the lumbar spine.
== END 2024-10-19 12:58 | disposition home or self-care (01) ==
PROVIDERS: PCP Family Medicine; Visit Provider Family Medicine
DX: Z00.00 Encounter for general adult medical examination without abnormal findings (principal); Z13.820 Encounter for screening for osteoporosis; E78.5 Hyperlipidemia, unspecified; E03.9 Hypothyroidism, unspecified; M85.80 Other specified disorders of bone density and structure, unspecified site
CPT/HCPCS: 77080

== ENCOUNTER → 2025-01-11 09:34 | Outpatient (BNVA) | payer MEDICARE, SELFPAY | PROVIDERS: PCP Family Medicine; Visit Provider Nurse Practitioner | DX: Z96.652 Presence of left artificial knee joint (principal) | CPT/HCPCS: 73560; 73565; 99214 ==